=== PATIENT | female | born 1940 | race Caucasian/White ===

== ENCOUNTER 2016-09-03 08:31 | Day surgery (SDC) | payer MEDICARE, OTHER ==
[~2016-09-03] VITALS: Ht 157.5 cm; Wt 54.9 kg
[~2016-09-03 08:31] MED LIST: 0.9% Sodium Chloride 1,000 ML IV PRN; CALC600T12 PO; CHOL500062 PO; MULT-1018 PO; Sodium Chloride LOK Flush 10 mL Syringe IV PRN; THYR30TA2 PO; THYR81.2 PO; TRET1COM3 TP; fentaNYL-PF 50 mCg/mL 2 mL Inj IVPUSH PRN
[2016-09-03 09:13] VITALS: BP 149/71; PULSE 49; RESP 15; O2SAT 92
[2016-09-03 10:11] VITALS: BP 142/66; PULSE 67; RESP 16; O2SAT 97
[2016-09-03 10:21] VITALS: BP 139/65; PULSE 64; RESP 15; O2SAT 97
[2016-09-03 10:31] VITALS: BP 115/52; PULSE 52; RESP 15; O2SAT 95
--- NOTE | 2016-09-03 11:07 | ENDO ---
[address] [address] ENDOSCOPY PROCEDURE PATIENT: MARC FLORES : 1940 MR#: [id number] ADMIT: 09/03/2016 JOB ID: [id number] DATE: 09/03/2016 PRIMARY PROVIDER: Angel Isaac M.D. PROCEDURE: Colonoscopy. INDICATIONS: A 75-year-old female with chronic intermittent fecal incontinence of a clear fluid. She denies constipation or diarrhea. She has had rectocele repair, bladder suspension, hysterectomy. EQUIPMENT: [employer] [place] H [address] [place]. SEDATION: 1. 7 mg Versed. 2. 150 mcg fentanyl. COMPLICATIONS: None identified. BOWEL PREPARATION: Fair, adequate examination. PROCEDURAL INFORMATION: After the risks and benefits were explained, written and verbal informed consent was obtained. The patient was brought into the endoscopy suite and placed into the left lateral decubitus position. Sedation was achieved using the above-stated medications with the addition of oxygen via nasal cannula. A digital rectal examination was performed. (before the initiation of sedation). The patient had a prolapsing hemorrhoidal cushion and I was able to digitally push this back up into the anal canal. No mass lesions were detected. No fissures appreciated. The patient had a mildly reduced puborectalis sling force and mildly reduced external anal sphincter contraction on command, She did exhibit reasonably normal propulsive forces. The scope was introduced into the rectum and we carefully examined the area for any evidence of a cyst that was opening. The scope was then advanced to the cecum as identified by the appendiceal orifice and ileocecal valve. The scope was slowly withdrawn to carefully examine the mucosa for any defects or lesions. Again multiple views through the level of the dentate line were pursued to exclude any significant pathology. The colon was decompressed. The scope removed from the patient who tolerated the procedure reasonably well. FINDINGS: No significant polyps, mass lesions or inflammatory features identified throughout. The patient had diverticulosis in the left colon. It was a relatively challenging navigation through the rectosigmoid region. I did not see any proctitis, no colitis. Moderately engorged internal hemorrhoidal cushions. There was a slight scarring effect seen in the rectum of uncertain etiology. No overt mucosal pathology. Photographs were taken. ENDOSCOPIC DIAGNOSES: 1. Moderately engorged internal and external hemorrhoids. 2. Diverticulosis. 3. Otherwise visually unremarkable colonoscopy. RECOMMENDATIONS: 1. The patient is encouraged to again use intermittent warm Epsom salt baths this week to reduce hemorrhoidal engorgement. 2. She is encouraged to trial 2 tablespoon of ground flaxseed fiber mixed with 8 ounces of water or juice daily. 3. If she continues to have leakage of clear fluid per rectum, then I think Urology examination with voiding cystogram would be appropriate.
== END 2016-09-03 23:59 | disposition home or self-care (01) ==
LOC: END 08:31
PROVIDERS: ATTEND Internal Medicine Gastroenterology
DX: R15.9 Full incontinence of feces (principal); K57.30 Diverticulosis of large intestine without perforation or abscess without bleeding; K64.8 Other hemorrhoids; K64.4 Residual hemorrhoidal skin tags
CPT/HCPCS: 45378; 99153; G0500; J2250; J3010; J7030